=== PATIENT | female | born 2000 | race Caucasian/White ===

== ENCOUNTER → 2021-08-20 | Outpatient (REF) | payer OTHER | LOC: M PLALAB 08:09 | PROVIDERS: ATTEND Specialist | DX: Z53.9 Procedure and treatment not carried out, unspecified reason (principal) ==

== ENCOUNTER 2022-02-10 15:41 | Inpatient (IN) | payer OTHER ==
[~2022-02-10] VITALS: Ht 154.9 cm; Wt 88.4 kg
[2022-02-10] VITALS (12 sets, daily range): BP systolic 82–130; BP diastolic 39–75
[2022-02-10] MEDS ORDERED: TUMS500C PO (16:47)
[2022-02-10] MEDS ORDERED: PRENTAB9 PO (16:47)
[2022-02-10] MEDS ORDERED: ACET-907 PO (16:47)
[2022-02-10] MEDS ORDERED: HOME MED LIST COMPLETE! XX SCH (16:50)
[2022-02-10] MEDS ORDERED: LACTATED RINGER'S 1000 ML IV STA (17:08)
[2022-02-10] MEDS ORDERED: LIDOCAINE 1% MDV 20ML VIAL INFIL PRN (17:10)
[2022-02-10] MEDS ORDERED: TRANEXAMIC ACID INJection 1,000 MG in NS 100 ML IV PRN (17:10)
[2022-02-10] MEDS ORDERED: CARBOPROST TROMETHAMINE 250 MCG/ML AMP IM PRN (17:10)
[2022-02-10] MEDS ORDERED: LR 1,000 ML IV SCH (17:10)
[2022-02-10] MEDS ORDERED: METHYLERGONOVINE MALEATE 0.2 MG/ML VIAL (J2210) IM PRN (17:10)
[2022-02-10] MEDS ORDERED: OXYTOCIN DRIP 30 UNITS in IV 1 EA IV PRN (17:10)
[2022-02-10 17:40] LABS: HEMATOCRIT 30.2 % (36.0-52.0); HEMOGLOBIN 9.9 g/dl (12.0-18.0); MEAN CORPUSCULAR HEMOGLOBIN 29.1 pg; MEAN CORPUSCULAR HGB CONC 32.8 g/dl (32.0-36.5); MEAN CORPUSCULAR VOLUME 88.8 fl (80.0-96.0); PLATELET COUNT, AUTOMATED 271 10^3/uL (150-450); WHITE BLOOD COUNT 8.9 10^3/uL (4.5-12.0)
[2022-02-10] MEDS: miSOPROStol 50MCG 1/2 TABLET SL SCH ×2 (18:00→21:10)
[2022-02-10] MEDS ORDERED: PROMETHAZINE 25MG/ML 1ML VIAL IV ONE (20:30)
[2022-02-10] MEDS ORDERED: BUTORPHANOL 2 MG/ML 1ML VIAL IV ONE (20:30)
[2022-02-10] MEDS ORDERED: FENTANYL 2MCG/ML ROPIVACAINE 0.2% IN 0.9% NACL 100ML IVBAG As Ordered ONE (22:59)
[2022-02-10] MEDS ORDERED: EPIDURAL/PCA KEYS XX PRN (23:40)
[2022-02-10] MEDS ORDERED: LR 500 ML IV PRN (23:40)
[2022-02-10] MEDS ORDERED: FENTANYL/ROPIVACAINE/NACL BAG 100 ML EPIDURAL SCH (23:40)
[2022-02-10] MEDS ORDERED: ONDANSETRON 4MG 2ML VIAL IV PRN (23:40)
[2022-02-10] MEDS ORDERED: ePHEDrine SULFATE 25 MG/5 ML(5MG/ML) SYRINGE As Ordered ONE (23:40)
[2022-02-10] MEDS ORDERED: NALOXONE INJ 0.4MG/1ML VIAL IV PRN (23:40)
[2022-02-10] MEDS ORDERED: diphenhydrAMINE 50MG/ML VIAL IV PRN (23:40)
[2022-02-10] MEDS ORDERED: ePHEDrine SULFATE 25 MG/5 ML(5MG/ML) SYRINGE IVP PRN (23:40)
[2022-02-11] VITALS (29 sets, daily range): BP systolic 101–157; BP diastolic 51–79
[2022-02-11] MEDS ORDERED: METHYLERGONOVINE MALEATE 0.2 MG TAB PO PRN (02:40)
[2022-02-11] MEDS ORDERED: ACETAMINOPHEN TAB 650MG DOSE (2X325MG) PO PRN (02:40)
[2022-02-11] MEDS ORDERED: RHOGAM 300MCG (1500IU) INJ IM SCH (02:40)
[2022-02-11] MEDS ORDERED: DOCUSATE SODIUM 100MG CAPSULE PO PRN (02:40)
[2022-02-11] MEDS ORDERED: LR 1,000 ML IV SCH (02:40)
[2022-02-11] MEDS ORDERED: DIBUCAINE 1% OINTMENT 30GM TOP PRN (02:40)
[2022-02-11] MEDS ORDERED: OXYTOCIN DRIP 30 UNITS in IV 1 EA IV SCH (02:40)
[2022-02-11] MEDS ORDERED: IBUPROFEN 600MG TAB PO PRN (02:40)
[2022-02-11] MEDS: IBUPROFEN 800 MG TAB PO PRN ×2 (05:59→15:29)
[2022-02-11] MEDS: ACETAMINOPHEN 500 MG TAB PO PRN ×2 (07:26→20:35)
[2022-02-11] MEDS: PRENATAL VITAMINS CHEWABLE TABLET PO SCH (07:26)
[2022-02-11] MEDS ORDERED: ESCITALOPRAM OXALATE 5MG TABLET (LEXAPRO) PO SCH (21:00)
[2022-02-12 06:00] VITALS: BP 119/78
[2022-02-12] MEDS: PRENATAL VITAMINS CHEWABLE TABLET PO SCH (08:27)
[2022-02-13] MEDS ORDERED: MEASLES,MUMPS,RUBELLA VACCINE INJ (MMR-II) SC.IMMUN ONE (09:00)
== END 2022-02-12 15:30 | disposition home or self-care (01) | DRG 807 ==
LOC: M LDO 15:41 → M LDI 18:41 → EDSEX 18:41 → M OBS 02-11 05:30
PROVIDERS: ADMIT Obstetrics & Gynecology; ATTEND Obstetrics & Gynecology
PROC: 3E0P7GC Introduction of Other Therapeutic Substance into Female Reproductive, Via Natural or Artificial Opening (ICD-10-PCS; 2022-02-10)
PROC: 10E0XZZ Delivery of Products of Conception, External Approach (ICD-10-PCS; principal; 2022-02-11)
PROC: 0KQM0ZZ Repair Perineum Muscle, Open Approach (ICD-10-PCS; 2022-02-11)
DX: O42.02 Full-term premature rupture of membranes, onset of labor within 24 hours of rupture (principal); Z37.0 Single live birth; Z3A.40 40 weeks gestation of pregnancy; O70.1 Second degree perineal laceration during delivery